=== PATIENT | female | born 1975 | race Caucasian/White ===

== ENCOUNTER 2021-12-22 08:37 | Outpatient (CLI) | payer OTHER, SELFPAY ==
--- NOTE | 2021-12-22 | ECHO_ITS ---
Patient Info Name: Tahira Vásquez Age: 46 years : 1975 Gender: Female Ht: 60 in Wt: 150 lbs BSA: 1.72 m2 HR: 75 bpm BP: 122 / 87 mmHg Heart Rhythm: Sinus Rhythm Exam Date: 12/22/2021 9:12 AM Exam Location: [facility] Pulmonary Patient Status: Outpatient Admit Date: 12/22/2021 Staff Ordering Physician: Chance, Sayra CASTRO Border Measurer: Asif Lubin, VANCE, RT Attending Provider: Chance, Sayra CASTRO Exam Type: CA echo doppler color flow Study Info Indications R00.2 - Palpitations Complete two-dimensional, color flow and Doppler transthoracic echocardiogram is performed. Strain analysis performed. Summary 1. Complete two-dimensional, color flow and Doppler transthoracic echocardiogram is performed. 2. Left ventricular chamber dimension is normal. 3. Left ventricular systolic function is normal, estimated at 60-65%. 4. The left ventricular diastolic function is normal. 5. Global longitudinal strain is normal at -19 %. 6. There is no aortic valve stenosis. 7. There is no mitral valve regurgitation. Left Ventricle Left ventricular chamber dimension is normal. Left ventricular systolic function is normal, estimated at 60-65%. There is no increased left ventricular wall thickness. The left ventricular diastolic function is normal. Global longitudinal strain is normal at -19 %. Right Ventricle Right ventricular chamber dimension is normal. Right ventricular systolic function is normal. Left Atria Left atrial chamber dimension is normal. Right Atria Right atrial chamber dimension is normal. Aortic Valve The aortic valve is not well visualized. There is no aortic valve stenosis. There is no aortic valve regurgitation. Pulmonic Valve The pulmonic valve is not well visualized. There is trace pulmonic regurgitation. Mitral Valve The mitral valve has normal leaflets. There is no mitral valve regurgitation. Tricuspid Valve The tricuspid valve leaflets are normal. Unable to estimate PA systolic pressure due to poor spectral resolution of tricuspid regurgitant jet velocity. Pericardium/Pleural The pericardium appears epicardial fat pad. There is no pericardial effusion. Inferior Vena Cava Normal inferior vena cava with >50% collapse upon inspiration consistent with normal right atrial pressure, 5 mmHg. Aorta The aortic root size at the sinus of Valsalva is normal. Left Ventricular Outflow Tract Name Value Normal LVOT 2D LVOT Diameter 2.0 cm LVOT Doppler LVOT Peak Gradient 4 mmHg LVOT Mean Gradient 2 mmHg LVOT VTI 19 cm LVOT VTI/AV VTI Ratio 0.8 LVOT Stroke Volume 59 ml LVOT CO 4.7 l/min LVOT CI 2.7 l/min/m2 Mitral Valve Name Value Normal MV Doppler
--- NOTE | 2021-12-28 07:09 | WPDHOLTEREM ---
Holter/Event Monitor Holter/Event Monitor Date of procedure: 12/28/21 Holter/Event Procedure: 48 Hr Holter Monitor Diagnosis: Palpitations Indications: Palpitations Image/Tracing Quality: Favorable Finding: The basic cardiac rhythm is sinus with normal ND QRS and QT intervals. The heart rate varies from a minimum of 52 maximum 124. The average heart rate was 79. There were no significant pauses or examples of abnormal AV conduction. The longest RR interval recorded was 1.4 seconds. Supraventricular ectopic activity was rare consisting of PACs occurring at a rate of less than 1 complex per hour. There were no atrial runs in there were no examples of atrial fibrillation. Ventricular ectopic activity was also infrequent to rare consisting of single PVCs. There was 1 5 beat run of monomorphic ventricular tachycardia that occurred at 7:24 p.m. on day 1 of monitoring. The patient submitted a diary in which an episode of palpitations at 7:25 p.m. correlates with the 5 beat run of ventricular tachycardia detailed above. Conclusion: 1. Normal sinus rhythm with normal heart rate variability 2. Five beat run of nonsustained ventricular tachycardia which correlates with the patient's symptomatic entry in her diary. Reynaldo Bhatia MD [facility]
== END 2021-12-22 08:38 | disposition home or self-care (01) ==
PROVIDERS: PCP Nurse Practitioner Adult Health; Visit Provider Nurse Practitioner Adult Health
DX: R00.2 Palpitations (principal); Z86.16 Personal history of COVID-19
CPT/HCPCS: 93225; 93226; 93306

== ENCOUNTER 2023-08-17 11:57 | Outpatient (CLI) | payer OTHER, SELFPAY ==
[2023-08-17 13:46] LABS: Hematocrit 36.4 % (37.0-47.0); Hemoglobin 11.3 g/dL (12.0-15.0)
== END 2023-08-17 11:58 | disposition home or self-care (01) ==
LOC: ANHSURGERY 12:01
PROVIDERS: Anesthesiology; PCP Nurse Practitioner Family; Visit Provider Obstetrics & Gynecology
DX: D50.9 Iron deficiency anemia, unspecified (principal)
CPT/HCPCS: 36415; 85014; 85018

== ENCOUNTER 2023-08-23 01:13 | Day surgery (SDC) | payer OTHER, SELFPAY ==
[2023-08-16 10:54] VITALS: BMI 28.3
--- NOTE | 2023-08-16 10:59 | PC.NURSE ---
Report to the Outpatient Waiting Room, entrance under the green pavilion located off [facility], at time 6:00 on date 08/23/23. Planned Procedure Time: 7:30. Time changes happen often and if your time is changed the preop area will call you the afternoon before. - You and your visitor will be asked to self-screen and do not enter if you have any COVID symptoms. - A mask is optional within the hospital at this time. Patients may have clear liquids (water, carbonated beverages, clear teas, apple juice) until 3 hours prior to surgery (4:30) with a maximum of 20 ounces. - No food from midnight until time of surgery Take the following medications with a SIP of water the morning of surgery: NONE DO NOT STOP ANY OF YOUR OTHER PRESCRIPTION MEDICATIONS PRIOR TO SURGERY ?EXCEPT THE FOLLOWING Medications to discontinue per physician: VITAMINS/SUPPLEMENTS Date to take last dose: 08/19/23 Please no make-up, nail qatari, hairspray, perfume, deodorant, or body powder the day of surgery. No jewelry (including any body piercings) or valuables the day of surgery, leave them at home. Please take a shower or bath the night before, or the morning of, surgery with an antibacterial soap. Wear comfortable, loose fitting clothing. - Jewelry must be removed prior to entering the operating room. Rings and piercings that are not removed may be cut off. - The hospital will not accept responsibility for valuables. - Please leave all valuables, including medications, at home the day of surgery. If you are going home after surgery, a licensed limb driver must drive you home. - NO public transportation without another adult if you receive anesthesia. - We recommend that an adult stay with you for 24 hours following discharge. - We also recommend that you do not drive, make important decision, drink alcoholic beverages, or take any drugs that were not prescribed by your health care provider for at least 24 hours after your discharge time. Follow any additional instructions given to you from your surgeon. If you or anyone in your household have experienced Covid symptoms in the past week, please notify your surgeon or the nurse liaison at the phone number below for possible testing. Telephone instructions given to PT - REBECCA VAZQUEZ and asked if any additional questions and then verbalized understanding. Patient advised to call surgeon office or pre surgery nurse liaison [phone] if any additional questions.
--- NOTE | 2023-08-23 06:26 | WPDANESEPPF ---
Anes - Initial Pre Proc Eval Procedure: Operation Date: 08/23/23 07:30 Proposed Procedures p Hysteroscopy with Lois Endometrial Ablation - Allyson Ghotra MD Date/Time: 08/23/23 06:26 Surgeon: Allyson Ghotra MD Pre Op Diagnosis: Menorrhagia Patient Data Age: 48 Gender: F Height: 1.55 m Weight: 68.05 kg Allergies Allergy/AdvReac Type Severity Reaction Status Date / Time Sulfa (Sulfonamide Allergy Unknown Hives Verified 08/16/23 10:53 Antibiotics) Home Medications Medication Instructions Recorded Confirmed Type ferrous sulfate 325 mg (65 mg 325 mg PO DAILY 08/16/23 08/16/23 History iron) tablet (Iron (ferrous sulfate)) Patient hx anesthesia problems: none Family hx anesthesia problems: none Results Review: All pre-operative results and documents have been reviewed as part of the pre-operative evaluation. [facility] Past Medical History Medical History DUB (dysfunctional uterine bleeding) Overweight Smoker Surgical History Surgical History (Updated 08/23/23 @ 06:26 by Gideon Lee MD) History of section Social History Social History Smoking packs per day: 1 Smoking cigarettes per day: 20.0 Years smoked: 20 Smoking pack-years: 20.00 Smoking status: Current every day smoker Tobacco type: cigarettes and e-cigarettes/vaping Additional smoking assessment comments: QUIT CIAGRETTES EARLY 2022, NOW VAPING Alcohol intake: never Substance use: never Substance use type: does not use Living arrangements: with family Additional living arrangements comments: CHILDREN Spiritual care concerns: No Anes - Eval Final PreProcedure Day of Procedure 08/23/23 06:26 Patient weight: overweight Heart: regular rate and rhythm Lungs: clear to auscultation Airway: Mallampati scale class II Neurological: alert and oriented Last oral intake: >/= 8 hours ASA classification: II Emergent: no Anesthetic plan: proceed Anesthesia type and monitoring: general GIVS and standard monitoring Results Review: All pre-operative results and documents have been reviewed as part of the pre-operative evaluation. Informed Consent: The patient's anesthetic plan and its attendant risks and benefits were discussed with the patient/family/POA. Questions were solicited and answers provided to the satisfaction of the patient/family/POA.
[2023-08-23 06:30] VITALS: BP 100/55; PULSE 67; RESP 16; TEMP 37.3; O2SAT 98
[2023-08-23] MEDS: LACTATED RINGERS 1,000 ML 30 ML IV CONT (06:30)
[2023-08-23] MEDS: ACETAMINOPHEN 500 MG TABLET 1000 MG PO (06:45)
[2023-08-23] MEDS: KETOROLAC 15 MG/ML VIAL (*BKC) IV PUSH (06:45)
--- NOTE | 2023-08-23 07:12 | PM.IMHP ---
H&P: HPI History of Present Illness Date/Time: 08/23/23 07:12 Chief Complaint: Heavy vaginal bleeding Narrative: This patient is a 48-year-old female with severe menorrhagia. We have agreed to perform endometrial ablation with hysteroscopy. She understands the procedure. She understands that there is risk. She understands that injuries may occur the resultant hospitalization, more surgery, and severe illness. She knows there is a risk of hemorrhage and infection. She denies any nausea, vomiting, fever, chills. She denies any chest pain or shortness of breath. Review of Systems Review of Systems: All systems reviewed & are unremarkable except as noted in HPI and below Constitutional: Constitutional: Denies chills, Denies fatigue, Denies fever(s) and Denies weakness Eyes: Eyes: Denies blurry vision, Denies change in vision, Denies loss of peripheral vision, Denies loss of vision, Denies other visual disturbances and Denies eye pain ENT: Denies vertigo, Denies dizziness, Denies hearing loss, Denies mouth pain, Denies nasal obstruction, Denies neck mass and Denies neck pain Cardiovascular: Cardiovascular: Denies chest pain, Denies diaphoresis, Denies syncope, Denies leg edema and Denies dyspnea Respiratory: Respiratory: Denies chest congestion, Denies cough, Denies hemoptysis, Denies dyspnea and Denies wheezing Gastrointestinal: Gastrointestinal: Denies abdominal pain, Denies constipation, Denies diarrhea, Denies nausea and Denies vomiting Genitourinary: Genitourinary: Denies hematuria, Denies change in libido, Denies nocturia, Denies genital lesions, Denies flank pain and Denies urinary urgency Musculoskeletal: Musculoskeletal: Denies abnormal gait, Denies back pain, Denies myalgias, Denies arthralgias, Denies joint swelling, Denies muscle weakness and Denies neck pain Integumentary/Breasts: Skin/Breast: Denies swelling, Denies breast pain, Denies breast mass, Denies dry skin, Denies nipple discharge, Denies unusual bruising and Denies jaundice Neurologic: Denies Neuro-related abnormal movements, Denies Abnormal speech present, Denies abnormal gait, Denies behavioral changes, Denies confusion, Denies vertigo, Denies dizziness, Denies syncope, Denies loss of vision, Denies memory loss, Denies convulsions and Denies weakness Psychiatric: Psychiatric: Denies abnormal sleep pattern, Denies behavioral changes, Denies change in libido, Denies confusion, Denies depression, Denies anhedonia and Denies memory loss Endocrine: Endocrine: Reports no additional endocrine complaints, Denies change in libido and Denies fatigue Hematologic/Lymphatic: Hematologic/Lymphatic: Reports no additional hematologic/lymphatic complaints Allergic/Immunologic: Allergic/Immunologic: Reports no additional allergic/immunologic complaints and Denies wheezing PMFSH Past Medical History Medical History DUB (dysfunctional uterine bleeding) Overweight Smoker Surgical History Surgical History (Updated 08/23/23 @ 06:26 by Gideon Lee MD) History of section Social History Social History Smoking packs per day: 1 Smoking cigarettes per day: 20.0 Years smoked: 20 Smoking pack-years: 20.00 Smoking status: Current every day smoker Tobacco type: cigarettes and e-cigarettes/vaping Additional smoking assessment comments: QUIT CIAGRETTES EARLY 2022, NOW VAPING Alcohol intake: never Substance use: never Substance use type: does not use Living arrangements: with family Additional living arrangements comments: CHILDREN Spiritual care concerns: No Meds Home Medications and Allergies Home Medications Medication Instructions Recorded Confirmed Type ferrous sulfate 325 mg (65 mg 325 mg PO DAILY 08/16/23 08/16/23 History iron) tablet (Iron (ferrous sulfate)) Allergies Allergy/AdvReac Type Severity Reaction Status Date / Time Sulfa (Sulfonamide Allerg
--- NOTE | 2023-08-23 07:14 | WPDHPUPDATE1 ---
History and Physical Update Update Date/Time: 08/23/23 07:14 History and Physical has been reviewed, including an updated exam of the patient. There are NO changes in the patient's condition. Risks, benefits, and alternatives have been discussed and questions answered. Patient agrees to proceed with procedure.
[2023-08-23] MEDS: LIDOCAINE HCL 1% LOCAL INJ 20 ML VIAL INFILTRATE (07:40)
[2023-08-23 08:10] VITALS: BP 89/49; PULSE 76; RESP 16; O2SAT 94
--- NOTE | 2023-08-23 08:21 | W.PM.PROC2 ---
Procedure Note - Detailed Date of Procedure 08/23/23 Pre-op Diagnosis Menorrhagia Post-op Diagnosis Same Procedure Performed endometrial ablation with hysteroscopy d&c Surgeon Allyson Ghotra MD Anesthesia MAC Indications Severe menorrhagia Findings Normal vulva vagina and cervix. Normal endometrium. Description of Procedure The patient was taken to the operating room. She was prepped and draped in the dorsal lithotomy position after induction of mac anesthesia. A speculum was placed in the vagina. Cervix grasped with a tenaculum. The cervix was dilated to about 1 cm. The hysteroscope was inserted. The above findings were noted. Endometrial curettage was performed with a medium-size curette. All surfaces of the endometrium were affected by the curettage. The specimens were collected and sent to pathology. Measurements were taken of the uterus and cervix. The uterine length was then entered into the hand piece of the Lois device. The device was inserted into the intrauterine cavity. The array of the device was expanded. The balloon cuff was inflated. A good seal was achieved. The energy and safety cycles were initiated and completed. The array was collapsed and the instrument was withdrawn after deflating the balloon cuff. Hysteroscope was reinserted. Above findings were noted. The hysteroscope was removed. The patient tolerated the procedure well. The speculum and tenaculum were removed. She was taken to recovery in stable condition. Sponge lap and needle counts were correct x2. Estimated Blood Loss 15 Pathology Yes Complications No immediate complications Condition Stable Disposition Same day
[2023-08-23 08:25] VITALS: BP 90/54; PULSE 75; RESP 16; O2SAT 93
[2023-08-23 08:55] VITALS: BP 104/66; PULSE 99; RESP 18; O2SAT 100
[2023-08-23] MEDS: oxyCODONE HCL (*CRX) 5 MG TAB IR PO (09:05)
[2023-08-23 09:25] VITALS: BP 97/64; PULSE 71; RESP 16
== END 2023-08-23 09:38 | disposition home or self-care (01) ==
PROVIDERS: PCP Nurse Practitioner Family; Visit Provider Obstetrics & Gynecology
PROC: 0U5B8ZZ Destruction of Endometrium, Via Natural or Artificial Opening Endoscopic (ICD-10-PCS; CPT 58563; principal; 2023-08-23 07:30)
DX: N92.0 Excessive and frequent menstruation with regular cycle (principal); F17.290 Nicotine dependence, other tobacco product, uncomplicated
CPT/HCPCS: 58563; 88305; A9270; J1885; J2001; J2250; J2405; J2704; J3010; J7120

== ENCOUNTER 2023-12-28 11:57 | Outpatient (CLI) | payer OTHER, SELFPAY ==
[2023-12-28 18:55] LABS: Alanine Aminotransferase 18 U/L (6-35); Albumin Level 4.4 g/dL (3.5-5.1); Alkaline Phosphatase 61 U/L (38-126); Anion Gap 6 mmol/L (8-16); Aspartate Amino Transferase 56 U/L (14-36); Bilirubin,Total 0.6 mg/dL (0.2-1.3); Blood Urea Nitrogen 17 mg/dL (7-17); Calcium 9.1 mg/dL (8.4-10.2); Carbon Dioxide 28 mmol/L (22-30); Chloride 104 mmol/L (98-107); Cholesterol 171 mg/dL (0-200); Estimated Glomerular Filt Rate > 60; Glucose 83 mg/dL (65-110); HDL Direct 58 mg/dL; Potassium 4.7 mmol/L (3.4-5.0); Sodium 138 mmol/L (137-145); Triglycerides 75 mg/dL (<150)
[2023-12-28 19:06] LABS: LDL Cholesterol Direct 86 mg/dL
[2023-12-28 19:16] LABS: Hematocrit 42.3 % (37.0-47.0); Mean Corpuscular HGB Conc 30.7 g/dl (32-36); Mean Corpuscular Volume 81.5 fl (80-100); Mean Platelet Volume 9.7 fl (7.4-10.4); Platelet Count Result 489 k/mm3 (150-375); Red Blood Count 5.19 M/mm3 (4.2-5.4); Red Cell Distribution Width 17.9 % (11.5-14.5); White Blood Count 8.4 K/mm3 (4.5-10.0)
[2023-12-28 19:26] LABS: Thyroid Stimulating Hormone 0.427 uIU/mL (0.465-4.680)
== END 2023-12-28 11:58 | disposition home or self-care (01) ==
LOC: ANHBWCLAB 11:58
PROVIDERS: PCP Nurse Practitioner Adult Health; Visit Provider Nurse Practitioner Adult Health
DX: Z13.9 Encounter for screening, unspecified (principal)
CPT/HCPCS: 36415; 80053; 80061; 84443; 85027

== ENCOUNTER 2025-05-11 14:48 | Emergency (ER) | payer SELFPAY ==
--- NOTE | ~2025-05-11 | US_ITS ---
EXAM: ABDOMEN ULTRASOUND HISTORY: RUQ pain. COMPARISON: Reference is made to a CT examination of the abdomen and pelvis dated 05/11/2025 and datin chacorta back to 12/01/2008 FINDINGS: LIVER: The liver is unremarkable in echogenicity and size. GALLBLADDER: No stones are identified within the gallbladder, which is otherwise unremarkable. No gallbladder wall thickening or pericholecystic fluid. BILE DUCTS: Common bile duct measures 2.5mm. PANCREAS: Limited evaluation of the pancreas secondary to overlying bowel gas IMPRESSION: Limited evaluation of the pancreas secondary to overlying bowel gas. Otherwise, unremarkable sonographic evaluation of the right upper quadrant, as detailed above. Despite patient's right upper quadrant pain, the gallbladder is unremarkable sonographically (as well as by CT examination). Biliary dyskinesia can also produce right upper quadrant pain, for which outpatient HIDA scan is rhina mmended. Reviewed, dictated and finalized at location A. IMPRESSION: Limited evaluation of the pancreas secondary to overlying bowel gas. Otherwise, unremarkable sonographic evaluation of the right upper quadrant, as detailed above. Despite patient's right upper quadrant pain, the gallbladder is unremarkable so nographically (as well as by CT examination). Biliary dyskinesia can also produce right upper quadrant pain, for which outpat ient HIDA scan is recommended.
--- NOTE | ~2025-05-11 | CT_ITS ---
CLINICAL INDICATION: Right upper quadrant pain COMPARISON: 12/01/2008 TECHNIQUE: Multiple contiguous axial images of the abdomen and pelvis were performed following the ad ministration of with 100 mL Omnipaque-350 intravenous contrast The dose-length product (DLP) was 235.03 mGy-cm. Automated exposure control and iterative reconstruction technique were employed. FINDINGS/OBSERVATIONS: Visualized lower thorax: The bilateral lung bases are clear. The heart is of normal size, without pericardial effusion. Small hiatal hernia is present. Liver: The liver demonstrates homogeneous enhancement and is enlarged measuring 20 cm in longitudinal dimens ion. Gallbladder and biliary system: The gallbladder is only minimally distended, without significant surrounding inflammatory change. No calcified stones are appreciated. Pancreas: The pancreas enhances homogeneously without ductal dilatation. Spleen: The spleen enhances homogeneously and is not enlarged. Kidneys: The bilateral kidneys enhance symmetrically without hydronephrosis or renal calculi. Adrenal glands: Unremarkable. Gastrointestinal tract: Colonic diverticulosis without surrounding inflammatory change. Appendix: The appendix is not definitively visualized. However, no pericecal inflammatory change is identified suggest the presence of acute appendicitis. 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 The right gonadal vein branches from the right renal vein (an anatomic variant) and is also enlarged, but less so when compared to the left. Lymph nodes: No pathologically enlarged or morphologically suspicious lymph nodes within the retroperitoneum or at the root of the mesentery. Pelvic structures: The bladder is only minimally distended, and otherwise unremarkable. The uterus is enlarged for a patient of this age, anteverted and anteflexed. The left ovary is unremarkable. The right ovary demonstrates multiple rounded foci of decreased attenuation, likely representing cyst s (decreased in size from previous CT examination dated 12/01/2008). Body wall and musculoskeletal: No significant degenerative disease within the lower thoracic or lumbosacral spine. IMPRESSION: Findings consistent with pelvic congestion syndrome clinical correlation is needed. The gallbladder is relatively unremarkable by CT criteria. Perhaps focused ultrasound would provide b lu characterization. Significant enlargement of uterus, for a patient of this age - query menopausal status? Small cysts within the right ovary, as detailed above. Hepatomegaly Reviewed, dictated and finalized at location A. IMPRESSION: Findings consistent with pelvic congestion syndrome clinical correlation is nee ded. The gallbladder is relatively unremarkable by CT criteria. Perhaps focused ultr asound would provide better characterization. Significant enlargement of uterus, for a patient of this age - query menopausa l status? Small cysts within the right ovary, as detailed above. Hepatomegaly
--- NOTE | ~2025-05-11 | XR_ITS ---
CHEST RADIOGRAPH CLINICAL HISTORY: R lower chest pain . COMPARISON: None available TECHNIQUE: Single portable view of the chest. FINDINGS The cardiomediastinal silhouette is unremarkable. The lungs are clear. IMPRESSION: No focal infiltrate or effusion. Reviewed, dictated and finalized at location A.
--- OUTSIDE RECORDS SUMMARY | 2025-05-11 14:50 | XMS_ITS | Clinical Summary ---
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 Name Role Phone Unavailable Primary Care Provider Unavailabl e Social History Tobacco Use Types Packs/Day Years Used Date Smoking Tobacco: Never Assessed Comments Unknown Sex and Gender Information Value Date Recorded Sex Assigned at Not on file Legal Sex Female 3:04 PM [employer]HE [employer] Gender Identity Not on file Sexual Orientation Not on file Plan of Treatment Health Maintenance Due Date Last Done Comments Hepatitis C Virus (HCV) Screening 1975 TdaP Immunization 1975 Hepatitis B Immunization (1 of 3 - 19+ 3-dose series) 1994 Pap Smear 1996 Cervical Cancer Screening (CCS) 2005 HPV/Cotest 2005 Discussion re Starting/Frequ ency of Mammograms 2015 Colonoscopy 2020 Colorectal Cancer Screening 2020 Influenza Immunization (#1) 2024 SARS-COV-2 Immunization (2023- season) 2024 Respiratory Syncytial Virus (RSV) Immunization (Adult) (1 - 1-dose 75+ series) 2050 Meningococcal Immunization (ACWY) Aged Out No longer eligible based on patient's age to complete this topic Pneumococcal Immunization Combined Aged Out No longer eligible based on patient's age to complete this topic Rotavirus Immunization Aged Out No lo nger eligible based on patient's age to complete this topic
--- OUTSIDE RECORDS SUMMARY | 2025-05-11 14:50 | XMS_ITS | Data Portability ---
Author Organization [facility] [place] Address [address] [place] [address] Assessment No assessment recorded. Plan of Treatment Reminders Order Date Submit Date Provider Last Modified By Organization Details Last Modified Time Details Appointments None recorded. Lab None recorded. Referral None recorded. Procedures None recorded. Surgeries hysteroscop y, with endometrial ablation (SURG) 2022 023 [facility], [facility] [address], [place], [address], 3 09:49:12 Imaging US, pelvis 2022 023 [email or web address] [place], [facility] [address], [place], [address], 3 20:36:30 US, transvagina l 2022 023 [email or web address] [place], [facility] [address], [place], [address], 3 20:36:30 Medication Orders Guild 10 mg-325 mg tablet 2022 023 [facility] #[id number], [address], [place], [address], 3 15:27:59 Xanax 0.5 mg tablet 2022 023 [facility]armacy #[id number], [address], [place], [address], 3 15:27:58 Zofran 8 mg tablet 2022 023 [facility]/Pharmacy #[id number], [address], [place], [address], 3 15:27:56 ibuprofen 800 mg tablet 2022 023 [facility]arm[facility] #[id number], [address], [place], [address], 3 15:27:56 Patient TargetsNo targets recorded. Patient InstructionsNo instructions recorded. Reason for Referral None Reported. Results Created Date Observation Date Name Description Value Unit Range Abnormal Flag Note LastModifiedBy Organization Detail LastModifiedTime 06/28/20 23 06/28/2023 US, pelvi s No observ ation record ed. [email or web address] [place] [address], [place], [address], 06/30/2023 09:47:28 06/28/20 23 06/28/2023 US, pelvi s No observ ation record ed. [email or web address] [address], [place], [address], 06/28/2023 13:59:07 06/28/20 23 06/28/2023 US, trans vagin al No observ ation record ed. [email or web address], [place], [address], 06/28/2023 13:58:55 Result Notes None recorded. Problems Name Problem SNOMED Code Status Onset Date Resolution Date Notes Provider Name and Address Organization Details Recorded Time SNOMED CT Concept Active 2019 Encntr for obstetrician/gynecologist exam (general) (routine) w/o abn findings;R ecorded Elsewhere: No Locatio n: [facility] rce: EHR Chroni c: N Practice ID: [id number] Billa ble Time: 10:15:00 AM Not Available [facility] 0 16:44:05 Cyst of vulva 49121977 Active 2018 Vulvar cyst;Recor ded Elsewhere: No Locatio n: [facility] rce: EHR Chroni c: N Practice ID: [id number] Billa ble Time: 11:00:00 AM Not Available [facility] 0 16:44:05 Atypical squamous cells of undetermi jamie significa nce on cervical Papanicol aou smear [id number] Active 2019 Atyp squam cell of undet signfc cyto smr crvx (ASC-US);R ecorded Elsewhere: No Locatio n: [facility] rce: EHR Chroni c: N Practice ID: [id number] Billa ble Time: 03:23:54 PM Not Available [facility] [address] 16:44:[address] Concept Active 2019 Encntr for routine child health exam w/o abnormal findings;R ecorded Elsewhere: No Locatio n: [facility] rce: EHR Chroni c: N Practice ID: 0001 Billa ble Time: 10:15:00 AM Not Available [facility] 0 16:44:05 Problem Notes None recorded. Procedures Surgical History Date Name Laterality Status Provider Name and Address Organization Details Recorded Time 3 HYSTEROSCOPY, WITH ENDOMETRIAL ABLATION (SURG) completed Drea Thomas [facility] 08/24/2023 10:32:20 0 Date of Last Pap Smear completed Kate [facility] 06/27/2023 11:29:02 0 Date of Last Mammogram completed Kate Meek [facility] 06/27/2023 11:29:44 2 Caesarean Section completed Kate [facility] 06/27/2023 11:33:22 8 Caesarean Section completed Kate Meek [facility] 06/27/2023 11:33:17 6 Caesarean Section completed Kate [facility] 06/27/2023 11:33:13 4 Caesarean Section completed Kate [facility] 06/27/2023 11:33:06 1 Caesarean Section completed Kate [facility] 06/27/2023 11:33:01 Tubal Ligation completed Rachana Butler [facility] 07/03/2023 15:36:44 Imaging Results None recorded. Procedure Notes None recorded. Medical Equipment None Reported. Allergies Allergen ID Allergen Name Allergen Category Reaction Reaction Severity Criticality Documentation Date Start Date Code Code System Note Provider Name and Address Organization Details Recorded Time 24552 Substance with sulfonami de structure and antibacte rial mechanism of action (substanc e) medicatio n Not available Not available Not available 11/13/2020 [id number] SNOMED Comme nt: [facility]at [facility]: [facility]; Not Available [facility] 0 14:20:48 Medications Name Sig Start Date Stop Date Status Note LastModified by Organization Details LastModified Time ibuprofen 800 mg tablet TAKE 1 TABLET BY MOUTH DAILY NEEDED WITH FOOD active Not Available Not Available No t Available ondansetr on HCl 8 mg tablet Take 1 tablet 2 hours before the procedur e. active Not Available Not Available No t Available hydrocodo ne 10 mg-acetam inophen 325 mg tablet Take 1 tablet 2 hours before the procedur e. active Not Available Not Available No t Available cefadroxi l 500 mg capsule take 1 capsule by oral route 2 times every day 06/27 completed Prescrib ed Elsewher e: No Locat ion: [facility] M odify By: sgrotefe ndt Enco unter DateTime : 11/04/20 19 11:00:00 AM Not Available Not Available Not Available alprazola m 0.5 mg tablet Take 1 tablet 2 hours before the procedur e. active Not Available Not Available No t Available albuterol sulfate HFA 90 mcg/actua tion aerosol inhaler INHALE 2 PUFFS BY MOUTH EVERY 4 HOURS NEEDED active Not Available Not Available No t Available amoxicill in 875 mg-potass ium clavulana te 125 mg tablet TAKE 1 TABLET BY MOUTH EVERY 12 HOURS X7 DAYS 06/27 completed Not Available Not Available Not Available nitrofura ntoin monohydra te/macroc rystals 100 mg capsule TAKE 1 CAPSULE BY MOUTH TWICE A DAY 06/27 completed Not Available Not Available Not Available varenicli ne tartrate 0.5 mg (11)-1 mg (42) tablets in a dose pack TAKE DIRECTED 06/27 completed Not Available Not Available Not Available Vitals Date Recorded Body height Body mass index (BMI) Body weight Systolic blood pressure Diastolic blood pressure Provider Name and Address Organization Details Last Updated DateTime 07/03/2023 152.4 cm 29.9 kg/m2 88042.63 g 109 mm[Hg] 74 mm[Hg] [facility] 14:46:09 Date Recorded Body height Provider Name an d Address Organization Details Last Updated DateTime 09/01/2023 152.4 cm [facility] 09/01/2023 12:29:07 Social History Question Answer Notes LastModified by Wrike Details LastModified Time Tobacco Smoking Status Never Smoker Kate iqbal, [facility] 06/27/2023 11:32:37 In The 14 Days Before Symptom Onset, Have You Had Close Contact With A Laboratory-confirm ed COVID-19 While That Case Was Ill? No Information n ot available 06/27/2023 In The 14 Days Before Symptom Onset, Have You Had Close Contact With A Person Who Is Under Investigation For COVID-19 While That Person Was Ill? No Information not available 06/27/2023 Have You Been To An Area Known To Be High Risk For COVID-19? No Information not available 06/27/2023 Sex: Unknown Functional Status Question Answer Note LastModified by Organizat ion Details LastModified Time Do you use any illicit or recreational drugs? No Information not available 06/27/2023 What is your level of alcohol consumption? None Information not available 06/27/2023 Mental Status None recorded. Family History Relationship Description Onset Age of this Age Resolved Age Notes LastModified by Organization Details LastModified Time Mother Asthma Not available 11:31:51 Mother Hypertensive disorder Not available 2022 11:32:08 Maternal Grandfather Diabetes mellitus Not available 2022 11:31:59 Brother Malignant neoplasm of lung Not available 2022 11:32:22 Notes:Brother: Cancer, lung Maternal grandfather: Diabetes mellitus, Cancer, lung Mother: Asthma, Hypertension Paternal aunt: Cancer, breast Medical History Condition Response Allergies (Food, seasonal, environmental ) N Other N Breast Cancer N Drug/Latex Allergies/Reactions N Blood Transfusion N Dermatologic Disorders N Lung Disease N Defects or Inherited Disease N Breast Problem N Gestational Diabetes N Hematologic disorders N Anesthesia Complications N History of STI N Deep Vein Thrombosis N Polycystic ovary syndrome N Anxiety Disorder N Autoimmune disease N Arthritis N Infertility N Polyps N Acid Reflux (GERD) N History of abnormal pap N Cancer N Stroke N Varicosities N Neurologic/Epilepsy N Endometriosis N High Cholesterol N Headaches N Fibromyalgia N Kidney Disease N Heart Problems N Kidney or Bladder Problems N Thyroid Problems N GI Problems N Eating Disorder N Anemia Y Art (IVF or FET) N Psychiatric Illness N Ovarian Cancer N Diabetes N Pulmonary (TB, Asthma) N Hepatitis/Liver Disease N No Past Medical History N Eczema N Urinary Tract Infection N Abuse/Domestic Violence N Asthma N Trauma/Violence N Depression/ depression N Heart Disease N Pre-Eclampsia N Hypertension N Osteoporosis N Thrombophilias N Gynecological History Statement/Question Response Abnormal Pap Y Flow Heavy Date of Last Mammogram 01/01/2020 Date of LMP 06/08/2023 Was last menstrual period normal Y STIs/STDs Y HPV Vaccine N Current Control Method Tubal Ligat ion Are cycles usually normal Y Sexually Active? Y Menses Monthly Y Age of first menstrual cycle 11 Date of Last Pap Smear 01/01/2020 Sexual Problems? N LMP Definite Obstetrics History GPAL:G 5 P 5 0 0 5 Type Value Full Term 5 Living 5 Total 5 Past Encounters Encounter ID Performer Location Encounter Start Date Encounter Closed Date Diagnosis/Indication Diagnosis SNOMED-CT Code Diagnosis ICD10 Code Diagnosis Note [id number] Nidhi Rodriguez [facility] [address] [address] 06/27/2023 10:58:13 06/27/2023 12:31:21 Menorrhagia 557289748 N92.0 The patient and I discussed the various causes of abnormal uterine bleeding, including polyps, fibroids, hyperplasi a, atypia, anovulatio n, etc. We reviewed the typical evaluation with labs, pelvic US and possible endometria l biopsy. Briefly discussed the options available for treatment (depending on the results of evaluation ) such as hormonal treatment (OCPs, progestins ), Mirena, endometria l ablation, and surgery. We spent more than 30 minutes face to face. WWE with paphpv to be scheduled (can be completed with string check IF we are able to do IUD insertion) .STD screen needed on day of IUD insertion (urine is fine). Time spent in visit is a total of 30 mins with at least 50% of visit consisting of counseling and review of plan of care. [facility] [id number] Z30.9 Discussed all control options and pt would like mirena IUD. I have discussed in detail all risks and benefits including risk of infection and perforatio n. Aware of need to verify with insurance device coverage. Literature given. All questions answered to patient satisfacti on. [id number] Geoffrey Ghotra MD [place] [address] [address] 06/28/2023 11:22:22 06/28/2023 14:47:12 Menorrhagia [id number] N92.0 [id number] Geoffrey Ghotra MD [place] [address] [address] 07/03/2023 14:33:18 07/03/2023 15:35:16 Preoperative state 39771627 Z78.9 Menorrhagia 891305819 N9 2.0 This patient is a 48-year-ol d female presents for heavy vaginal bleeding. She has longstandi ng very heavy bleeding. Her menses are regular. However, they require double protection . Patient has accidents, getting blood on her bedding and clothing. Is affected work. She changes a pad or tampon every hour. She leaks blood around the pad and tampon. This bleeding has a profound impact on her quality of life and her activities of daily living. Discussed treatment options in detail. Patient would like to proceed with endometria l ablation. We reviewed the video of endometria l ablation. We spent 40 minutes face-to-fa ce. More than 50% was counseling . We discussed treatment options for heavy bleeding in painstakin g detail. we made incision to perform surgery. [id number] Geoffrey Ghotra MD [place] [address] [address] 08/24/2023 09:51:11 08/24/2023 09:51:54 [id number] Geoffrey Ghotra MD [place] [address],[facility] [place] [address] 08/31/2023 12:03:17 08/31/2023 21:10:53 [id number] Geoffrey Ghotra MD [place] [address],[place] [address] 09/01/2023 12:03:28 09/01/2023 14:09:31 Menorrhagia [id number] N92.0 48-year-ol d female with menorrhagi a is seen in follow-up. She underwent endometria l ablation. She has no complaints . She has no vaginal discharge. No nausea, vomiting, fever, chills. She is recovering normally. She will follow-up as needed. Health Concerns Section Related Observation LastModified by Organization Detai ls LastModified Time None Recorded Concern Status LastModified by Organization Details LastModified Time None Recorded Advance Directives Directive None Recorded Payers Insurance Date Sequence Insurance Name Policy Number Policy Craven Covered Member ID Craven Member ID Guarantor Name 09/04/2023 1 [facility] - DOS ON OR AFTER 21 (MEDICAID REPLACEMENT - HMO) Tahira Vásquez [id number] Tahira Vásquez Notes Date Note Type Note Provider Name and Address Organization Details Recorded Time 07/03/2023 text/html This patient is a 48-year-old female presents for heavy vaginal bleeding. She has longstanding very heavy bleeding. Her menses are regular. However, they require double protection. Patient has accidents, getting blood on her bedding and clothing. Is affected work. She changes a pad or tampon every hour. She leaks blood around the pad and tampon. This bleeding has a profound impact on her quality of life and her activities of daily living. Discussed treatment options in detail. Patient would like to proceed with endometrial ablation. We reviewed the video of endometrial ablation. We spent 40 minutes [id number]. More than 50% was counseling. We discussed treatment options for heavy bleeding in painstaking detail. Geoffrey Ghotra MD [address], [place], [address], [facility] 07/03/2023 15:32:42 09/01/2023 text/html 48-year-old ghanshyam oneal with menorrhagia is seen in follow-up. She underwent endometrial ablation. She has no complaints. She has no vaginal discharge. No nausea, vomiting, fever, chills. She is recovering normally. She will follow-up as needed. Geoffrey Ghotra MD [address], [place], [address], [facility] 09/01/2023 12:54:55 OBGyn Episode Ob Episode Information Episode Created Date Number of Fetuses Patient Bloodtype Patient rh Status Prepregnancy Weight lbs Domestic Partner Domestic Partner Phone Father Name Computer Hardware Engineer Status 06/27/20 23 1 CLOSED Fetus Data First Name Last Name Admitted to NICU Weight (g) Sex Living Outcome Pediatric Complications Fetus ID Race Codes Race Delivery Type Full Term Primary Bhargav Calculation Initial Bhargav Date Initial Exam Date Initial Exam Provider Initial Ultrasound Date Last Menstrual Period Date Ultra Sound Weeks Gestation 0 Eighteen To Twenty Week Bhargav Update Ultra Sound Date Fundal Height At Umbil Quickening Date Ultra Sound Latest Weeks Gestation Final Bhargav Confirmed By Final Bhargav Confirmed Date Final Bhargav Date Ultra Sound Latest Days Gestation 0 0 Menstrual History Last Menstrual Date Menses Monthly On Bcp Conception Prior Menses Frequency Hcg Plus Date Menarche Onset Age Delivery Information Delivery Date Delivery Type Labor Anesthesia Weeks Gestation Incision Type Labor Labor Length Hrs Delivered By Post Complications Tubal Sterilization Discharge Date Comments 1 Discharge Information Feeding Method Contraceptive Method Maternal HG B and HCT Levels Ob Episode Information Episode Created Date Number of Fetuses Patient Bloodtype Patient rh Status Prepregnancy Weight lbs Domestic Partner Domestic Partner Phone Father Name Computer Hardware Engineer Status 06/27/20 1 CLOSED Fetus Data First Name Last Name Admitted to NICU Weight (g) Sex Living Outcome Pediatric Complications Fetus ID Race Codes Race Delivery Type Full Term Repeat Bhargav Calculation Initial Bhragav Date Initial Exam Date Initial Exam Provider Initial Ultrasound Date Last Menstrual Period Date Ultra Sound Weeks Gestation 0 Eighteen To Twenty Week Bhargav Update Ultra Sound Date Fundal Height At Umbil Quickening Date Ultra Sound Latest Weeks Gestation Final Bhargav Confirmed By Final Bhargav Confirmed Date Final Bhargav Date Ultra Sound Latest Days Gestation 0 0 Menstrual History Last Menstrual Date Menses Monthly On Bcp Conception Prior Menses Frequency Hcg Plus Date Menarche Onset Age Delivery Information Delivery Date Delivery Type Labor Anesthesia Weeks Gestation Incision Type Labor Labor Length Hrs Delivered By Post Complications Tubal Sterilization Discharge Date Comments 6 Discharge Information Feeding Method Contraceptive Method Maternal HG B and HCT Levels Ob Episode Information Episode Created Date Number of Fetuses Patient Bloodtype Patient rh Status Prepregnancy Weight lbs Domestic Partner Domestic Partner Phone Father Name Computer Hardware Engineer Status 06/27/20 1 CLOSED Fetus Data First Name Last Name Admitted to NICU Weight (g) Sex Living Outcome Pediatric Complications Fetus ID Race Codes Race Delivery Type Full Term Repeat Bhargav Calculation Initial Bhargav Date Initial Exam Date Initial Exam Provider Initial Ultrasound Date Last Menstrual Period Date Ultra Sound Weeks Gestation 0 Eighteen To Twenty Week Bhargav Update Ultra Sound Date Fundal Height At Umbil Quickening Date Ultra Sound Latest Weeks Gestation Final Bhargav Confirmed By Final Bhargav Confirmed Date Final Bhargav Date Ultra Sound Latest Days Gestation 0 0 Menstrual History Last Menstrual Date Menses Monthly On Bcp Conception Prior Menses Frequency Hcg Plus Date Menarche Onset Age Delivery Information Delivery Date Delivery Type Labor Anesthesia Weeks Gestation Incision Type Labor Labor Length Hrs Delivered By Post Complications Tubal Sterilization Discharge Date Comments 8 Discharge Information Feeding Method Contraceptive Method Maternal HG B and HCT Levels Ob Episode Information Episode Created Date Number of Fetuses Patient Bloodtype Patient rh Status Prepregnancy Weight lbs Domestic Partner Domestic Partner Phone Father Name Computer Hardware Engineer Status 06/27/20 1 CLOSED Fetus Data First Name Last Name Admitted to NICU Weight (g) Sex Living Outcome Pediatric Complications Fetus ID Race Codes Race Delivery Type Full Term Repeat Bhargav Calculation Initial Bhargav Date Initial Exam Date Initial Exam Provider Initial Ultrasound Date Last Menstrual Period Date Ultra Sound Weeks Gestation 0 Eighteen To Twenty Week Bhargav Update Ultra Sound Date Fundal Height At Umbil Quickening Date Ultra Sound Latest Weeks Gestation Final Bhargav Confirmed By Final Bhargav Confirmed Date Final Bhargav Date Ultra Sound Latest Days Gestation 0 0 Menstrual History Last Menstrual Date Menses Monthly On Bcp Conception Prior Menses Frequency Hcg Plus Date Menarche Onset Age Delivery Information Delivery Date Delivery Type Labor Anesthesia Weeks Gestation Incision Type Labor Labor Length Hrs Delivered By Post Complications Tubal Sterilization Discharge Date Comments 4 Discharge Information Feeding Method Contraceptive Method Maternal HG B and HCT Levels Ob Episode Information Episode Created Date Number of Fetuses Patient Bloodtype Patient rh Status Prepregnancy Weight lbs Domestic Partner Domestic Partner Phone Father Name Computer Hardware Engineer Status 06/27/20 23 1 CLOSED Fetus Data First Name Last Name Admitted to NICU Weight (g) Sex Living Outcome Pediatric Complications Fetus ID Race Codes Race Delivery Type Full Term Repeat Bhargav Calculation Initial Bhargav Date Initial Exam Date Initial Exam Provider Initial Ultrasound Date Last Menstrual Period Date Ultra Sound Weeks Gestation 0 Eighteen To Twenty Week Bhargav Update Ultra Sound Date Fundal Height At Umbil Quickening Date Ultra Sound Latest Weeks Gestation Final Bhargav Confirmed By Final Bhargav Confirmed Date Final Bhargav Date Ultra Sound Latest Days Gestation 0 0 Menstrual History Last Menstrual Date Menses Monthly On Bcp Conception Prior Menses Frequency Hcg Plus Date Menarche Onset Age Delivery Information Delivery Date Delivery Type Labor Anesthesia Weeks Gestation Incision Type Labor Labor Length Hrs Delivered By Post Complications Tubal Sterilization Discharge Date Comments 2 Discharge Information Feeding Method Contraceptive Method Maternal HG B and HCT Levels
--- OUTSIDE RECORDS SUMMARY | 2025-05-11 14:50 | XMS_ITS | Clinical Summary ---
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 2 Active GaviLyte-G 236-22.74-6.74 -5.86 gram Recon Soln TAKE DIRECTED 2 Active famotidine (PEPCID) 40 mg tablet Take 40 mg by mouth daily in the morning. 2 Active varenicline (CHANTIX) 0.5 mg (11)- 1 mg (42) tablets STARTER dose pack 2 Active albuterol sulfate 90 mcg/Actuation inhaler albuterol sulfate HFA 90 mcg/actuation aerosol inhaler INHALE 2 PUFFS BY MOUTH EVERY 4 HOURS NEEDED Active Active Problems Problem Noted Date Diagnosed Date Iron deficiency anemia 04/20/2022 Family History Medical History Relation Name Comments Cancer Brother 3 Lung Cancer Brother 3 Heart Disease Father Prostate Cancer Father Heart Attack Mother Relation Name Status Comments Brother 1 Alive Brother 2 Alive Brother 3 Daughter 1 Alive Daughter 2 Alive Daughter 3 Alive Father mena aquinokarla me pt stated not really involved with father Mother Alive Son 1 Alive Son 2 Alive Social History Tobacco Use Types Packs/Day Years Used Date Smoking Tobacco: Every Day Cigarettes Smokeless Tobacco: Never Alcohol Use Standard Drinks/Week Comments Never 0 (1 standard drink = 0.6 oz pur e alcohol) Comments Unknown Sex and Gender Information Value Date Recorded Sex Assigned at Not on file Legal Sex Female 3:47 PM CDT Gender Identity Not on file Sexual Orientation Not on file Last Filed Vital Signs Vital Sign Reading Time Taken Comments Blood Pressure 102/66 06/02/2022 2:32 PM CDT Pulse 69 06/02/2022 2:32 PM CDT Temperature 36.6 C (97.9 F) 06/02/2022 2:32 PM CDT Respiratory Rate - - Oxygen Saturation 97% 06/02/2022 2:32 PM CDT Inhaled Oxygen Concentration - - Weight 71 kg (156 lb 8 oz) 06/02/2022 2:32 PM CD T Height 152.4 cm (5') 06/02/2022 2:32 PM CDT Body Mass Index 30.56 06/02/2022 2:32 PM CDT Plan of Treatment Health Maintenance Due Date Last Done Comments DTAP/TDAP/TD VACCINES (1 - Tdap) 1994 HEPATITIS B VACCINES (1 of 3 - 19+ 3-dose series) 06/1994 HPV/Cotest (21-29) 1996 CERVICAL CANCER SCREENING 2005 HPV/Cotest (30-65) 2005 PAP SMEAR 2005 BREAST CANCER SCREENING 2015 COLORECTAL SCREENING 2020 Colorectal Cancer Screening 2020 FIT-DNA Q 3 years 2020 FIT/FOBT Q 1 year 2020 Flex Sig/CT Colonography Q 5 years 2020 INFLUENZA VACCINE (#1) 2024 ZOSTER VACCINE (1 of 2) 2025 Insurance [facility] MEDICAID
--- OUTSIDE RECORDS SUMMARY | 2025-05-11 14:50 | XMS_ITS | CONTINUITY OF CARE DOCUMENT ---
Author Name mo, mo Address Unknown Organization [facility] Address [address] [place] [address] Phone [phone] Care Team Providers Care Engraver Jewelry Name Role Phone Antwan GARCIA, Tree Unavailable HOPPERANA LAURA Unavailable [phone] HOPPER ANA LAURA Unavailable [phone] PROBLEMS Condition Status Date Provider Notes Cardiology examination active Erinn Ventim iglia MACHINE WHITENER Lower extremity edema, bilateral active [place] nda Ventimiglia MACHINE WHITENER Palpitations active Erinn Ventimiglia MACHINE WHITENER Anemia, iron deficiency active Erinn Venti miglia MACHINE WHITENER Tobacco abuse active Erinn Ventimiglia MACHINE WHITENER ENCOUNTERS Date Type Provider Location Encounter Diag nosis - In-person encounter Office Visit Tree Moncada MD [place] [facility] Cardiology examinationLower extremity edema, bilateralPalpitationsAne alethea, iron deficiencyTobacco abuse VITAL SIGNS Date Observation Value Provider Body Mass Index (Ratio) 29.28 kg/m2 Parmjit da Ventimiglia MACHINE WHITENER blood pressure, diastolic 61 mm[Hg] Li nkLogic blood pressure, systolic 100 mm[Hg] Celia kLogic blood pressure, cuff size regular Ja rret blood pressure, diastolic 61 mm[Hg] Ja rret blood pressure, systolic 100 mm[Hg] Jar ret pulse rate 74 /min Sam y height E&M 61 [in_i] Sam sravani y respiratory rate E&M 12 /min Sam oxygen saturation, oximetry 98 % Sam weight E&M 155 [lb_av] Sam jodie ALLERGIES Allergy Name Onset Date Reaction Criticality Status SULFA Low Criticality active HISTORY OF MEDICATION USE No Known Medication SOCIAL HISTORY Date Observation Value Provider drug use no Erinn Harmonymig raphael [facility] alcohol use no Erinn Aring raphael [facility] smoking status Former smoker Sam trang huerta INSURANCE PROVIDERS Payer name Policy type / Coverage type [place] red constitution party [facility] Medicaid [id number] ADVANCE DIRECTIVES Name Date DISCUSSED - NO DECISION MADE TREATMENT PLAN Date Name Performer [id number],S,s he currently vapes. cessation encouraged. Erinn Pat [facility] [id number],S,M june rodriguez d/t heavy menstrual cycles. She is planned for uterine ablation tomorrow. Will get recent labs from TAFE TEACHER Erinn Bi [facility] [id number],N,M june rodriguez d/t her known anemia in setting of heavy mestruation. We will however, do tele to r/o underlying arrhythmia. Will plan echo to r/o any LV dysfunction or WMA. Will do routine stress to look for any suggetion of ischemia in setting of palpitations, edema and tobacco abuse. O rders: E KG (CPT-27654) 9 9214 MOD 30-39min (CPT-98996) C omplete Echo (CPT-92028) Venous Doppler Bilateral LE - Reflux (CPT-60941) S tress Routine (CPT-51275) M onitor - Telemetry (Mobile Cardiac) (CPT-65018) Erinn Pat [facility] [id number],N,H as been been ongoing for several years. Has been more noticable recently. 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 Swelling worse in LLE and is painful. Will plan for venous duplex to r/o DVT. Concern however, is more for venous insufficiency. Encouraged compression and elevation. Will do echo to r/o any LV dysfunction. O rders: E KG (CPT-76493) 9 9214 MOD 30-39min (CPT-38513) C omplete Echo (CPT-21758) V enous Doppler Bilateral LE - Reflux (CPT-73742) S tress Routine (CPT-48510) M onitor - Telemetry (Mobile Cardiac) (CPT-96402) [facility]:she curre ntly vapes. cessation encouraged. [facility] Cardiology:Most like y d/t heavy menstrual cycles. She is planned for uterine ablation tomorrow. Will get recent labs from TAFE TEACHER [facility] Cardiology:Most like y d/t her known anemia in setting of heavy mestruation. We will however, do tele to r/o underlying arrhythmia. Will plan echo to r/o any LV dysfunction or WMA. Will do routine stress to look for any suggetion of ischemia in setting of palpitations, edema and tobacco abuse. O rders: E KG (CPT-03489) 9 9214 MOD 30-39min (CPT-13166) C omplete Echo (CPT-38118) V enous Doppler Bilateral LE - Reflux (CPT-69803) S tress Routine (CPT-90720) M onitor - Telemetry (Mobile Cardiac) (CPT-66864) [facility] Cardiology:Has been been ongoing for several years. Has been more noticable recently. 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 Swelling worse in LLE and is painful. Will plan for venous duplex to r/o DVT. Concern however, is more for venous insufficiency. Encouraged compression and elevation. Will do echo to r/o any LV dysfunction. O rders: E KG (CPT-74787) 9 9214 MOD 30-39min (CPT-46960) C omplete Echo (CPT-83450) V enous Doppler Bilateral LE - Reflux (CPT-38023) S tress Routine (CPT-82446) M onitor - Telemetry (Mobile Cardiac) (CPT-08037) Erinn Ventimiglia MACHINE WHITENER Date Name Monitor - Telemetry (Mobile Cardiac) Stress Routine Venous Doppler Bilat eral LE - Reflux Complete Echo HISTORY OF PROCEDURES Procedure Date Procedure Name Provider Procedure Notes S tatus EKG Tree Moncada MD complete d
[2025-05-11 15:03] VITALS: BP 131/66; PULSE 66; RESP 16; TEMP 36.6; O2SAT 100
[2025-05-11 16:13] LABS: Basophils Absolute Auto 0.1 K/mm3 (0.0-0.1); Basophils Percent Auto 0.5 % (0.2-1.2); Eosinophils Absolute Auto 0.2 K/mm3 (0-0.3); Hematocrit 41.9 % (37.0-47.0); Hemoglobin 13.4 g/dL (12.0-15.0); Immature Granulocyte Absolute 0.06 K/mm3 (0.00-0.031); Immature Granulocyte Percent A 0.5 % (0-0.5); Lymphocytes Absolute Auto 2.53 K/mm3 (0.9-3.2); Lymphocytes Percent Auto 22.5 % (18.3-44.2); Mean Corpuscular Hemoglobin 27.2 pg (26-34); Mean Platelet Volume 8.8 fl (7.4-10.4); Monocytes Absolute Auto 0.6 K/mm3 (0.1-0.6); Monocytes Percent Auto 5.3 % (2.6-8.5); Neutrophils Absolute Auto 7.8 K/mm3 (1.3-6.7); Neutrophils Percent Auto 69.2 % (45.5-73.1); Platelet Count Result 410 k/mm3 (150-375); Red Blood Count 4.93 M/mm3 (4.2-5.4); Red Cell Distribution Width 14.1 % (11.5-14.5); White Blood Count 11.3 K/mm3 (4.5-10.0)
[2025-05-11 16:14] LABS: Add Urine Microscopic? NO; Appearance Urine Clear (Clear); Bilirubin Urine Negative (Negative); Blood Urine Negative (Negative); Color Urine Yellow (Yellow); Glucose Urine UA Negative (Negative); Ketones Urine Negative (Negative); Leukocyte Esterase Ur Negative LEU/UL (Negative); Nitrate Urine Negative (Negative); Protein Urine Negative (Negative); Specific Grav Ur 1.021 (1.001-1.035)
[2025-05-11 16:23] LABS: Alanine Aminotransferase 18 U/L (6-35); Albumin Level 4.3 g/dL (3.5-5.1); Alkaline Phosphatase 55 U/L (38-126); Anion Gap 7 mmol/L (4-12); Aspartate Amino Transferase 23 U/L (14-36); Bilirubin,Total 0.4 mg/dL (0.2-1.3); Blood Urea Nitrogen 20 mg/dL (7-17); Calcium 9.1 mg/dL (8.4-10.2); Carbon Dioxide 27 mmol/L (22-30); Chloride 103 mmol/L (98-107); Estimated Glomerular Filt Rate > 60; Glucose 91 mg/dL (65-110); Lipase 40 U/L (23-300); Potassium 4.2 mmol/L (3.4-5.0); Sodium 137 mmol/L (137-145); Total Protein 7.6 g/dL (6.3-8.2)
[2025-05-11 16:23] LABS: Pregnancy On Board Control Positive; Urine Pregnancy Test Negative
[2025-05-11 16:31] LABS: BEDSIDEPREGUCG Negative (Negative)
--- OUTSIDE RECORDS SUMMARY | 2025-05-11 16:40 | XMS_ITS | Clinical Summary ---
Author Organization [facility] Usama Espana Address [address] [place] [address] Care Team Providers Care Cement Sprayer Helper Name Role Phone Unavailable Primary Care Provider [...] ZOSTER VACCINE (1 of 2) 2025 Insurance [facility] MEDICAID
--- OUTSIDE RECORDS SUMMARY | 2025-05-11 16:41 | XMS_ITS | CONTINUITY OF CARE DOCUMENT ---
Author Name mo, mo Address Unknown Organization [facility] Address [address] [place] [address] Phone [phone] Care Team Providers Care Chairman & Chief Executive Officer Name Role Phone Antwan GARCIA, Tree Unavailable HOPPERANA LAURA Unavailable [phone] HOPPER ANA LAURA Unavailable [phone] PROBLEMS Condition Status Date Provider Notes Cardiology examination active Erinn Ventim iglia MACHINE SKIVER Lower extremity edema, bilateral active [place] nda Ventimiglia MACHINE SKIVER Palpitations active Erinn Ventimiglia MACHINE SKIVER Anemia, iron deficiency active Erinn Venti miglia MACHINE SKIVER Tobacco abuse active Erinn Ventimiglia MACHINE SKIVER ENCOUNTERS Date Type Provider Location Encounter Diag nosis - In-person encounter Office Visit Tree Moncada MD [place] [facility] Cardiology examinationLower extremity edema, bilateralPalpitationsAne alethea, iron deficiencyTobacco abuse VITAL SIGNS Date Observation Value Provider Body Mass Index (Ratio) 29.28 kg/m2 Parmjit da Ventimiglia MACHINE SKIVER blood pressure, diastolic 61 mm[Hg] Li nkLogic [...] Provider drug use no Erinn Harmonymig raphael [facility] alcohol use no Erinn Aring raphael [facility] smoking status Former smoker Sam trang huerta INS[employer]ANCE PROVIDERS Payer name Policy type / Coverage type [place] red libertarian [facility] Medicaid [id number] ADVANCE DIRECTIVES Name Date DISCUSSED - NO DECISION MADE TREATMENT PLAN Date Name Performer [id number],S,s he currently vapes. cessation encouraged. Erinn Pat [facility] [id number],S,M june rodriguez d/t heavy menstrual cycles. She is planned for uterine ablation tomorrow. Will get recent labs from LAMINATING MACHINE OPERATOR Erinn Bi [facility] [id number],N,M june rodriguez d/t her known anemia in setting of heavy mestruation. We will however, do tele to r/o underlying arrhythmia. Will plan echo to r/o any LV dysfunction or WMA. Will do routine stress to look for any suggetion of ischemia in setting of palpitations, edema and tobacco abuse. O rders: E KG (CPT-56159) 9 9214 MOD 30-39min (CPT-44634) C omplete Echo (CPT-42884) Venous Doppler Bilateral LE - Reflux (CPT-16213) S tress Routine (CPT-34851) M onitor - Telemetry (Mobile Cardiac) (CPT-75401) Erinn Pat [facility] [id number],N,H as been been ongoing for several years. [...] any LV dysfunction. O rders: E KG (CPT-95467) 9 9214 MOD 30-39min (CPT-89234) C omplete Echo (CPT-31582) V enous Doppler Bilateral LE - Reflux (CPT-96322) S tress Routine (CPT-52838) M onitor - Telemetry (Mobile Cardiac) (CPT-71506) [facility] Card[facility]:she curre ntly vapes. cessation encouraged. [facility] Cardiology:Most like y d/t heavy menstrual cycles. She is planned for uterine ablation tomorrow. Will get recent labs from LAMINATING MACHINE OPERATOR [facility] Cardiology:Most like y d/t her known anemia in setting of heavy mestruation. We will however, do tele to r/o underlying arrhythmia. Will plan echo to r/o any LV dysfunction or WMA. Will do routine stress to look for any suggetion of ischemia in setting of palpitations, edema and tobacco abuse. O rders: E KG (CPT-34873) 9 9214 MOD 30-39min (CPT-89717) C omplete Echo (CPT-75614) V enous Doppler Bilateral LE - Reflux (CPT-34487) S tress Routine (CPT-41769) M onitor - Telemetry (Mobile Cardiac) (CPT-05865) [facility] Cardiology:Has been been ongoing for several years. [...] any LV dysfunction. O rders: E KG (CPT-44262) 9 9214 MOD 30-39min (CPT-79188) C omplete Echo (CPT-02769) V enous Doppler Bilateral LE - Reflux (CPT-98241) S tress Routine (CPT-06770) M onitor - Telemetry (Mobile Cardiac) (CPT-76143) Erinn Ventimiglia MACHINE SKIVER Date Name Monitor - Telemetry (Mobile Cardiac) Stress Routine Venous Doppler Bilat eral LE - Reflux Complete Echo HISTORY OF PROCEDURES Procedure Date Procedure Name Provider Procedure Notes S tatus EKG Tree Moncada MD complete d
--- OUTSIDE RECORDS SUMMARY | 2025-05-11 16:41 | XMS_ITS | Clinical Summary ---
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
--- NOTE | 2025-05-11 17:39 | ED_ITS ---
HPI - Abdominal Pain General Chief Complaint: Abdominal Pain Stated Complaint: RUQ pain Time Seen by Provider: 05/11/25 16:33 History of Present Illness HPI narrative: Patient is a 50-year-old female who presents to the ER with complaints of right upper quadrant abdominal pain. She reports her pain started last Monday, 9 days ago. Patient reports she went to her primary care provider on Monday, 4 days ago, who assessed patient and explained to it was probably related to her gallbladder. She reports the pain radiates to her right flank/back. Patient reports she also feels bloated. She denies any recent fevers, chest pain, urinary symptoms, or constipation. Patient endorses a history of five C sections, uterine ablation, and tonsillectomy. Related Data Allergies Allergy/AdvReac Type Severity Reaction Status Date / Time Sulfa (Sulfonamide Allergy Unknown Hives Verified 05/11/25 15:06 Antibiotics) codeine AdvReac Mild Vomiting Verified 05/11/25 15:06 Review of Systems 2 Review of Systems: All systems reviewed & are unremarkable except as noted in HPI and below PMFSH Past Medical History Medical History Smoker Overweight DUB (dysfunctional uterine bleeding) Surgical History Surgical History History of section Family History Family History Mother Asthma Sibling Cancer Social History Social History Smoking packs per day: 1 Smoking cigarettes per day: 20.0 Years smoked: 20 Smoking pack-years: 20.00 Smoking status: Current every day smoker Tobacco type: cigarettes and e-cigarettes/vaping Additional smoking assessment comments: QUIT CIAGRETTES EARLY 2022, NOW VAPING Alcohol intake: never Substance use: never Substance use type: does not use Lack of Transportation: No Lack of Food: Never True Current Housing: I Have Housing Concerned About Future Housing: No Difficulty Paying Gas/Electric Bills: No Difficulty Paying for Meds: No Currently Unemployed: No Education: High School Diploma/GED Difficulty w/ Childcare or Family Care: No Living arrangements: with family Additional living arrangements comments: CHILDREN Occupation/Education: occupation 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 HEAD: Normocephalic, atraumatic. NECK: Supple. No adenopathy, no masses. RESPIRATORY: Airway patent, respirations nonlabored. Clear to auscultation bilaterally, no rales, rhonchi, wheezing. CARDIOVASCULAR: Regular rate and rhythm without murmurs, rubs, or gallops. Peripheral pulses 2+ and equal bilaterally. ABDOMINAL: Soft, RUQ and RLQ tenderness, nondistended, no hepatosplenomegaly. Normoactive BS. +Lubin's sign MUSCULOSKELETAL: Moves all extremities. Strength/ROM intact without gross deformities. SKIN: Warm, dry, normal color. No rashes. NEURO: A&O X3. Speech clear. Cranial nerves II-XII intact. No ataxic movements. PSYCHIATRIC: Appropriate mood and affect. Normal interaction. Course Vital Signs Vital signs: Vital Signs Temperature 36.6 C 05/11/25 15:03 Pulse Rate 66 05/11/25 15:03 Respiratory Rate 16 05/11/25 15:03 Blood Pressure 131/66 05/11/25 15:03 Pulse Oximetry 100 05/11/25 15:03 Oxygen Delivery Room Air 05/11/25 15:03 Temperature 36.6 C 05/11/25 15:03 Pulse Rate 66 05/11/25 15:03 Respiratory Rate 16 05/11/25 15:03 Blood Pressure 131/66 05/11/25 15:03 Pulse Oximetry 100 05/11/25 15:03 Oxygen Delivery Room Air 05/11/25 15:03 MDM - Abdominal Pain MDM Narrative Medical decision making narrative: Patient is a 50-year-old female who presents to the ER with complaints of right upper quadrant abdominal pain. She reports her pain started last Monday, 9 days ago. Patient reports she went to her primary care provider on Monday, 4 days ago, who assessed patient and explained to it was probably related to her gallbladder. She reports the pain radiates to her right flank/back. Patient reports she also feels bloated. She denies any recent fevers, chest pain, urinary symptoms, or constipation. Patient endorses a history of five C sections, uterine ablation, and tonsillectomy. Labs Ordered: CBC, CMP, lipase, UA, d dimer Imaging Ordered: CT abdomen pelvis, ultrasound abdomen, chest x-ray Medications Ordered: Tylenol p.o., Toradol (pt refused), Zofran (pt refused), 1L NS IV bolus Results: CT abdomen pelvis indicates Findings consistent with pelvic congestion syndrome clinical correlation is needed. The gallbladder is relatively unremarkable by CT criteria. Perhaps focused ultrasound would provide better characterization. Significant enlargement of uterus, for a patient of this age - query menopausal status? Small cysts within the right ovary, as detailed above. Hepatomegaly Abdominal US indicates Limited evaluation of the pancreas secondary to overlying bowel gas. Otherwise, unremarkable sonographic evaluation of the right upper quadrant, as detailed above. Despite patient's right upper quadrant pain, the gallbladder is unremarkable sonographically (as well as by CT examination). Biliary dyskinesia can also produce right upper quadrant pain, for which outpatient HIDA scan is recommended. Diagnosis: Right upper quadrant abdominal pain, right flank pain Patient Education/Shared MDM: Results of lab work and imaging shared with patient. She endorses improvement of symptoms following (Tylenol) medication administration. Patient strongly advised to maintain hydration status upon discharge and follow-up with her PCP as soon as possible. She will be discharged home with a prescription for muscle relaxants and ibuprofen 800 mg. Strict return precautions provided. Patient verbalized understanding and is in agreement with plan. Vital signs stable at time of discharge. All questions answered. Differential Diagnosis Differential diagnosis: Likely abdominal pain, acute appendicitis, calculus of kidney, pancreatitis and small bowel obstruction Lab Data Attestation: I reviewed the patient's lab results. 05/11/25 16:06 05/11/25 16:06 Labs: Lab Results 05/11/25 05/11/25 05/11/25 Range/Units 16:05 16:06 16:29 WBC 11.3 H (4.5-10.0) K/mm3 RBC 4.93 (4.2-5.4) M/mm3 Hgb 13.4 (12.0-15.0) g/dL Hct 41.9 (37.0-47.0) % MCV 85.0 (80-100) fl MCH 27.2 (26-34) pg MCHC 32.0 (32-36) g/dl RDW 14.1 (11.5-14.5) % Plt Count 410 H (150-375) k/mm3 MPV 8.8 (7.4-10.4) fl Immature Gran % (Auto) 0.5 (0-0.5) % Neut % (Auto) 69.2 (45.5-73.1) % Lymph % (Auto) 22.5 (18.3-44.2) % Wagoner % (Auto) 5.3 (2.6-8.5) % Eos % (Auto) 2.0 (0-4.4) % Baso % (Auto) 0.5 (0.2-1.2) % Lymph # (Auto) 2.53 (0.9-3.2) K/mm3 Wagoner # (Auto) 0.6 (0.1-0.6) K/mm3 Eos # (Auto) 0.2 (0-0.3) K/mm3 Baso # (Auto) 0.1 (0.0-0.1) K/mm3 Abs Immat Gran (auto) 0.06 H (0.00-0.031) K/mm3 Absolute Neuts (auto) 7.8 H (1.3-6.7) K/mm3 Absolute Nucleated RBC 0.000 (0.0-0.012) K/mm3 Nucleated RBC % 0.0 (0.0-0.2) % Sodium 137 (137-145) mmol/L Potassium 4.2 (3.4-5.0) mmol/L Chloride 103 (98-107) mmol/L Carbon Dioxide 27 (22-30) mmol/L Anion Gap 7 (4-12) mmol/L BUN 20 H (7-17) mg/dL Creatinine 0.63 L (0.7-1.0) mg/dL Estim Creat Clear Calc Not Reportable Estimated GFR > 60 (59 - ) Glucose 91 (65-110) mg/dL Calcium 9.1 (8.4-10.2) mg/dL Total Bilirubin 0.4 (0.2-1.3) mg/dL AST 23 (14-36) U/L ALT 18 (6-35) U/L Alkaline Phosphatase 55 (38-126) U/L Total Protein 7.6 (6.3-8.2) g/dL Albumin 4.3 (3.5-5.1) g/dL Lipase 40 (23-300) U/L Urine Color Yellow (Yellow) Urine Appearance Clear (Clear) Urine pH 6.0 (5.0-9.0) Ur Specific Valders 1.021 (1.001-1.035) Urine Protein Negative (Negative) mg/dL Urine Glucose (UA) Negative (Negative) mg/dL Urine Ketones Negative (Negative) mg/dL Ur Blood (Man) Negative (Negative) Urine Nitrate Negative (Negative) Urine Bilirubin Negative (Negative) Urine Urobilinogen 1.0 (<2.0) mg/dL Leukocyte Esterase Rfl Negative (Negative) GELY/UL POC Urine HCG, Qual Negative (Negative) Urine Test Negative Imaging Data Attestation: I personally reviewed and interpreted this imaging study as follows: Radiologist's impression: ITS Impressions Abdomen/Pelvis CT 05/11/25 18:12 IMPRESSION: Findings consistent with pelvic congestion syndrome clinical correlation is needed. The gallbladder is relatively unremarkable by CT criteria. Perhaps focused ultrasound would provide better characterization. Significant enlargement of uterus, for a patient of this age - query menopausal status? Small cysts within the right ovary, as detailed above. Hepatomegaly Abdomen Ultrasound 05/11/25 19:33 IMPRESSION: Limited evaluation of the pancreas secondary to overlying bowel gas. Otherwise, unremarkable sonographic evaluation of the right upper quadrant, as detailed above. Despite patient's right upper quadrant pain, the gallbladder is unremarkable sonographically (as well as by CT examination). Biliary dyskinesia can also produce right upper quadrant pain, for which outpatient HIDA scan is recommended. Discharge Plan Discharge Clinical Impression: Right upper quadrant abdominal pain, Right flank pain Patient Disposition: Home Condition: Stable Instructions: Antibiotic Form, Abdominal Pain (ED) Additional Instructions: Please return to the ER with any worsening symptoms. Follow-up with primary care provider as soon as possible. Take all medications as prescribed. You may take Tylenol, ibuprofen, and muscle relaxants as needed for pain control. Patient Language: Swedish Prescriptions: New cyclobenzaprine 5 mg tablet 5 mg PO TID PRN (Reason: muscle spasm) Qty: 15 0RF ibuprofen 800 mg tablet 800 mg PO TID PRN (Reason: pain) Qty: 30 0RF No Action omeprazole 40 mg capsule,delayed release(DR/EC) 40 mg PO DAILY Qty: 30 1RF Follow-up/Referrals: Sayra Fletcher APRN [Primary Care Provider] - Time of Disposition: 21:59
[2025-05-11] MEDS: SODIUM CHLORIDE 0.9% IV 1,000 ML 999 ML IV CONT (18:32)
[2025-05-11] MEDS: ACETAMINOPHEN 500 MG TABLET 1000 MG PO (19:15)
[2025-05-11 22:05] VITALS: BP 137/76; PULSE 86; RESP 16; TEMP 36.6; O2SAT 97
== END 2025-05-11 22:06 | disposition home or self-care (01) ==
PROVIDERS: Emergency Medicine; Emergency Provider Registered Nurse; PCP Nurse Practitioner Adult Health
DX: R10.11 Right upper quadrant pain (principal); F17.290 Nicotine dependence, other tobacco product, uncomplicated; N83.201 Unspecified ovarian cyst, right side; N85.2 Hypertrophy of uterus; R16.0 Hepatomegaly, not elsewhere classified
CPT/HCPCS: 36415; 71045; 74177; 76705; 80053; 81003; 81025; 83690; 85025; 96360; 99284; A9270; J7030; Q9967